=== PATIENT | female | born 1985 | race Caucasian/White ===

== ENCOUNTER 2017-09-01 05:13 | Inpatient (IN) | payer BC ==
[2017-09-01] MEDS ORDERED: ceFAZolin 2 GM in Premix Bag 1 BAG IV ONE (05:26)
[2017-09-01] MEDS ORDERED: Sodium Chloride 0.9% 10 ML Syringe FLUSH PRN (05:26)
[2017-09-01] MEDS ORDERED: Sodium Chloride 0.9% 2.5 ML Syringe FLUSH PRN (05:26)
[2017-09-01] MEDS ORDERED: Lactated Ringers 1,000 ML IV SCH ×2 (05:30→09:15)
[2017-09-01] MEDS ORDERED: Oxytocin/0.9 % Sodium Chloride 30 UNIT/500 ML BAG IV SCH (05:30)
[2017-09-01] MEDS ORDERED: Citric Acid/Sodium Citrate Solution 30 ML Cup PO SCH (05:30)
[2017-09-01] MEDS ORDERED: Morphine PF 1 MG/ML Amp ONE (07:20)
[2017-09-01] MEDS ORDERED: ePHEDrine 50 MG/ML SDV ONE (07:20)
[2017-09-01] MEDS ORDERED: Ondansetron 4 MG/2 ML SDV ONE (07:20)
[2017-09-01] MEDS ORDERED: ceFAZolin/Dextrose,Iso-Osmotic 2 GM/50 ML Duplex Bag IV ONE (07:20)
[2017-09-01] MEDS ORDERED: Octyl 2-Cyanoacrylate 1 Tube ONE (07:34)
[2017-09-01] MEDS ORDERED: Oxytocin/0.9 % Sodium Chloride 30 UNIT/500 ML BAG ONE (07:37)
[2017-09-01] MEDS ORDERED: Scopolamine 1.5 MG Transdermal Patch TRDERM PRN (07:38)
--- NOTE | 2017-09-01 07:53 | PCM.PREANE ---
Preanesthetic Assessment - Anesthesia/Transfusion/Family Hx Anesthesia History: Prior Anesthesia Reaction (hx of perioperative nausea and vomiting with prior c sections) Family History of Anesthesia Reaction: No Transfusion History: No Prior Transfusion(s) - Review of Systems General: No Symptoms Pulmonary: No Symptoms Cardiovascular: No Symptoms Gastrointestinal: No Symptoms Neurological: No Symptoms Other: Reports: None (term ) - Physical Assessment NPO Status Date: 08/31/17 Height: 1.73 m Weight: 102.512 kg ASA Class: 2 Dentition: Reports: Normal Dentition ROM/Head Extension: Full Lungs: Clear to Auscultation, Normal Respiratory Effort Cardiovascular: Regular Rate, Regular Rhythm - Lab Values: Laboratory Last Values WBC 11.46 K/uL (4.0-11.0) H 09/01/17 05:53 RBC 4.01 M/uL (4.30-5.90) L 09/01/17 05:53 Hgb 12.3 g/dL (12.0-16.0) 09/01/17 05:53 Hct 36.3 % (36.0-46.0) 09/01/17 05:53 MCV 90.5 fL (80.0-98.0) 09/01/17 05:53 MCH 30.7 pg (27.0-32.0) 09/01/17 05:53 MCHC 33.9 g/dL (31.0-37.0) 09/01/17 05:53 RDW Std Deviation 50.7 fl (28.0-62.0) 09/01/17 05:53 RDW Coeff of Husam 15 % (11.0-15.0) 09/01/17 05:53 Plt Count 173 K/uL (150-400) 09/01/17 05:53 MPV 10.30 fL (7.40-12.00) 09/01/17 05:53 Nucleated RBC % 0.0 /100WBC 09/01/17 05:53 Nucleated RBCs # 0 K/uL 09/01/17 05:53 Blood Type A POSITIVE 09/01/17 05:53 Antibody Screen NEGATIVE 09/01/17 05:53 - Allergies Allergies/Adverse Reactions: Allergies Allergy/AdvReac Type Severity Reaction Status Date / Time No Known Allergies Allergy Verified 08/29/17 09:00 - Blood Blood Available: Yes - Acknowledgements Anesthesia Type Planned: Spinal Pt an Appropriate Candidate for the Planned Anesthesia: Yes Alternatives and Risks of Anesthesia Discussed w Pt/Guardian: Yes Pt/Guardian Understands and Agrees with Anesthesia Plan: Yes PreAnesthesia Questionnaire HEENT History: Reports: None Cardiovascular History: Reports: None Respiratory History: Reports: None Gastrointestinal History: Reports: None Genitourinary History: Reports: None 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: Musculoskeletal History: Reports: Fracture Other Musculoskeletal History: hx fx ankle Neurological History: Reports: None Psychiatric History: Reports: None Endocrine/Metabolic History: Reports: Obesity/BMI 30+ Hematologic History: Reports: None Immunologic History: Reports: None Oncologic (Cancer) History: Reports: None Dermatologic History: Reports: None - Past Surgical History Head Surgeries/Procedures: Reports: None Female Surgical History: Reports: Section - SUBSTANCE USE Smoking Status *Q: Never Smoker Tobacco Use Within Last Twelve Months: No Second Hand Smoke Exposure: No Recreational Drug Use History: No - HOME MEDS Home Medications: Home Meds Vit W-Ca,Fe,FA(<1 mg) [ Vitamins] 1 tab PO DAILY 09/29/15 [ History] - CURRENT (IN HOUSE) MEDS Current Meds: Current Medications Citric Acid/Sodium Citrate (Bicitra Solution) 30 ml PO .ONCE ASIM Lactated Ringer's (Ringers, Lactated) 1,000 mls @ 500 mls/hr IV .BOLUS ASIM Last Admin: 09/01/17 06:06 Dose: 500 mls/hr Oxytocin/Sodium Chloride (Oxytocin 30 Unit/500 Ml-Ns) 30 unit in 500 mls @ 250 mls/hr IV TITRATE ASIM Scopolamine (Transderm-Scop) 1.5 mg TRDERM Q72H PRN PRN Reason: Nausea/Vomiting Sodium Chloride (Saline Flush) 10 ml FLUSH ASDIRECTED PRN PRN Reason: Keep Vein Open Sodium Chloride (Saline Flush) 2.5 ml FLUSH ASDIRECTED PRN PRN Reason: Keep Vein Open Discontinued Medications Cefazolin Sodium/Dextrose (Ancef) Confirm Administered Dose 2 gm IV .STK-MED ONE Stop: 09/01/17 07:21 Ephedrine Sulfate (Ephedrine Sulfate) Confirm Administered Dose 50 mg .ROUTE .STK-MED ONE Stop: 09/01/17 07:21 Cefazolin Sodium/Dextrose 2 gm (/ Premix) 50 mls @ 100 mls/hr IV ONETIME ONE Stop: 09/01/17 05:55 Oxytocin/Sodium Chloride (Oxytocin 30 Unit/500 Ml-Ns) Confirm Administered Dose 30 unit in 500 mls @ as directed .ROUTE .STK-MED ONE Stop: 09/01/17 07:38 Morphine Sulfate (Duramorph Pf) Confirm Administered Dose 1 mg .ROUTE .STK-MED ONE Stop: 09/01/17 07:21 Octyl Cyanoacrylate (Dermabond Advance) Confirm Administered Dose 1 applic .ROUTE .STK-MED ONE Stop: 09/01/17 07:35 Ondansetron HCl (Zofran) Confirm Administered Dose 4 mg .ROUTE .STK-MED ONE Stop: 09/01/17 07:21
[2017-09-01] MEDS ORDERED: Phenylephrine/Normal Saline 100 MCG/ML 10 ML Syringe ONE (08:09)
[2017-09-01] MEDS ORDERED: fentaNYL 100 MCG/2 ML SDV IVPUSH PRN (08:30)
[2017-09-01] MEDS ORDERED: Nalbuphine 10 MG/1 ML Vial IVPUSH PRN (08:30)
[2017-09-01] MEDS ORDERED: diphenhydrAMINE 50 MG/ML SDV IVPUSH PRN ×2 (08:30→09:15)
[2017-09-01] MEDS ORDERED: Aluminum Hydroxide/Magnesium Hydroxide/Simethicone Susp 30 ML Cup PO PRN (09:15)
[2017-09-01] MEDS ORDERED: Bisacodyl 10 MG Supp RECTAL PRN (09:15)
[2017-09-01] MEDS ORDERED: Acetaminophen/oxyCODONE 325-5 MG Tab PO PRN (09:15)
[2017-09-01] MEDS ORDERED: Ondansetron 4 MG/2 ML SDV IV PRN (09:15)
[2017-09-01] MEDS ORDERED: Simethicone 80 MG Tab.Chew PO PRN (09:15)
[2017-09-01] MEDS ORDERED: Lanolin 100% Cream 7 GM Tube TOP PRN (09:15)
--- NOTE | 2017-09-01 09:25 | PCM.OPNOTE ---
- General Post-Op/Procedure Note Date of Surgery/Procedure: 09/01/17 Operative Procedure(s): Repeat LTCS with bilateral salpingectomy Findings: term female AGPARs 9, 9 weight 3720 gm. Intact placenta with 3V cord. Normal appearing tubes/ovaries Pre Op Diagnosis: 39 week IUP. Previous c section x 2, desires repeat. Undesired fertility Post-Op Diagnosis: same Anesthesia Technique: Spinal Primary Surgeon: Breann Hartman Lawn Mower Operator: Demetria Kapoor Pathology: fallopian tubes Fluid Replacement, Intraop: 2,000 EBL in mLs: 800 Complications: none known Condition: Good Free Text/Narrative:: Dictation [id number]
[2017-09-01] MEDS ORDERED: Promethazine 25 MG/ML SDV IM PRN (09:31)
--- NOTE | 2017-09-01 09:42 | PCM.POSTAN ---
POST ANESTHESIA ASSESSMENT - MENTAL STATUS Mental Status: Alert, Oriented - RESPIRATORY Respiratory Status: Respiratory Rate WNL, Airway Patent, O2 Saturation Stable - CARDIOVASCULAR CV Status: Pulse Rate WNL, Blood Pressure Stable - GASTROINTESTINAL GI Status: No Symptoms - PAIN Pain Score: 0 - POST OP HYDRATION Hydration Status: Adequate & Stable
[2017-09-01] MEDS: Ketorolac 30 MG/ML SDV IVPUSH SCH ×3 (09:43→21:38)
--- NOTE | 2017-09-01 13:12 | OR ---
SURGEON: Breann Hartman M.D. DATE OF PROCEDURE: 09/01/2017 PREOPERATIVE DIAGNOSES: 1. Thirty-nine week intrauterine . 2. Previous section, desires repeat. 3. Undesired fertility. POSTOPERATIVE DIAGNOSES: 1. Thirty-nine week intrauterine . 2. Previous section, desires repeat. 3. Undesired fertility. PROCEDURE: Repeat low-transverse section with bilateral salpingectomy. PUNCH FINISHER: Soto Kapoor MS-4. ANESTHESIA: Spinal. ESTIMATED BLOOD LOSS: 800 mL. FLUIDS: 2000 mL crystalloid. COMPLICATION: None known. FINDINGS: Term female. scores 9 at 1 minute, 9 at 5 minutes. Weight of 3720 g. Intact placenta, 3-vessel cord. Normal-appearing tubes and ovaries. DISPOSITION: The patient to PACU, infant to nursery. PROCEDURE IN DETAIL: Josie is a 31-year-old, G3, P2 at 39 weeks' gestational age, who presents today for scheduled repeat delivery. She also no longer desires fertility. We have requested for permission to do permanent control at the time of the and has been approved by the ethics committee at [facility]. Risks of the procedure have been reviewed. Proper consent obtained. The patient taken to the operating room, where she underwent spinal anesthetic. She was placed in dorsal supine position with leftward tilt. SCDs lower extremities. Cardenas to gravity. She was prepped and draped in usual sterile fashion. Received Ancef prophylactically. Time-out was performed. After being prepped and draped in usual sterile fashion, anesthesia was tested and found to be adequate. Previous Pfannenstiel scar was now excised. Subcutaneous tissue was incised down the level of the rectus fascia, which was incised in midline and lateralized on either side sharply and bluntly. The superior aspect of fascia was tented upward, dissected sharply and bluntly from underlying muscle. In a similar fashion, this was performed with the inferior aspect of the fascia. Rectus muscles were in the midline, dissected sharply and bluntly. The peritoneum was tented upward and entered sharply. Rectus muscles and peritoneum were now lateralized bluntly. Uterine position and position palpated. Self-retaining retractor gently placed. Uterovesical reflection was visualized. There was scarring noted along this region, as to be expected. The bladder flap was created sharply and bluntly. Bladder was mobilized away from lower uterine segment. Low-transverse hysterotomy was now performed. Uterine cavity entered bluntly with the scalpel. Hysterotomy was lateralized bluntly. Amniotomy was performed. Clear fluid was returned. The infant's head was flexed and fundal pressure was applied. The 's head was delivered followed by anterior shoulder, posterior shoulder, and remainder of body without difficulty. The 's oropharynx and nares bulb suctioned. Cord was clamped x2 and cut. was handed off to attending nursing staff. Cord arterial, cord venous, cord blood sampling was obtained. The placenta was now delivered. Uterine cavity was cleared of all clot and debris. Hysterotomy was repaired using 0 Vicryl in continuous running locked fashion. The left uterine vessel continues to bleed; therefore, 2 [id number] sutures were placed while lateralizing the remainder of the vessels and ureter were performed, hemostasis thereafter evident. The hysterotomy once again re-imbricated, hemostasis appears evident. The posterior aspect of the uterus inspected, no defects or hematomas found be forming. The fallopian tubes are identified bilaterally. Confirmed with the patient she still would like to proceed with permanent control, she agrees. The left fallopian tube was isolated and, using Harmonic Cipriano, salpingectomy was performed. Specimen to pathology. Similar procedure performed on the patient's right side. The operative sites for salpingectomy were now inspected, and any areas of oozing were cauterized. Region was well irrigated and suction dried. Uterus returned to the abdominal cavity. Hysterotomy once again inspected. Any areas of oozing were cauterized. Colonic gutters were now cleared of all clot and debris, well irrigated, and suction dried. Hemostasis remained evident. Self-retaining retractor now gently removed. The salpingectomy sites once again inspected and found to be hemostatic. Hysterotomy once again inspected and found to be hemostatic. Rectus muscles were now reapproximated using 0 Vicryl in inverted mattress suture technique. Anterior aspect of the muscle, posterior aspect of the fascia closely inspected. Any areas of oozing were cauterized. The fascial edges were reapproximated using 0 Vicryl in continuous running fashion beginning laterally on either side meeting in the midline. Subcu tissue was well irrigated and suction dried. Any areas of oozing were cauterized. Subcutaneous tissue was now reapproximated using 3-0 plain gut in continuous running fashion. The skin edges were reapproximated using 3-0 Vicryl on a Benito needle in subcuticular fashion. Dermabond was gently placed. Uterus remained firm. Sponge, instrument, and needle count correct x2. The patient tolerated the procedure well. She will go to PACU in stable condition. Specimens to pathology. Infant to nursery. ZOFIA / DL /[id number]
[2017-09-01] MEDS: Docusate Sodium 100 MG Cap PO SCH (20:51)
[2017-09-02] MEDS: Ketorolac 30 MG/ML SDV IVPUSH SCH ×2 (03:48→10:18)
--- NOTE | 2017-09-02 07:51 | PCM48HPAN ---
Post Anesthesia Note - EVALUATION WITHIN 48HRS OF ANESTHETIC Vital Signs in Normal Range: Yes Patient Participated in Evaluation: Yes Respiratory Function Stable: Yes Airway Patent: Yes Cardiovascular Function Stable: Yes Hydration Status Stable: Yes Pain Control Satisfactory: Yes Nausea and Vomiting Control Satisfactory: Yes Mental Status Recovered: Yes Resp Rate: 17
--- NOTE | 2017-09-02 07:56 | PCM.PNPP ---
<Analisa Harry - Last Filed: 09/02/17 07:53> - General Info Date of Service: 09/02/17 Functional Status: Reports: Pain Controlled, Tolerating Diet, Ambulating, Urinating - Review of Systems General: Denies: Fever, Weakness, Fatigue Pulmonary: Denies: Shortness of Breath, Pleuritic Chest Pain, Cough Cardiovascular: Denies: Chest Pain, Palpitations, Dyspnea on Exertion Gastrointestinal: Denies: Abdominal Pain Genitourinary: Denies: Dysuria Psychiatric: Reports: No Symptoms - General Info Date of Service: 09/02/17 - Patient Data Vital Signs - Most Recent: Last Vital Signs Temp 36.6 C 09/02/17 05:00 Pulse 88 09/02/17 07:00 Resp 17 09/02/17 07:51 BP 110/59 L 09/02/17 05:00 Pulse Ox 98 09/02/17 07:00 Weight - Most Recent: 102.512 kg I&O - Last 24 Hours: Intake & Output 09/01/17 09/02/17 09/02/17 22:59 06:59 14:59 Intake Total 1600 Output Total 900 2500 Balance -900 -900 Lab Results - Last 24 Hours: Laboratory Results - last 24 hr 09/01/17 09/02/17 Range/Units 08:27 05:10 Hgb 8.8 L (12.0-16.0) g/dL Hct 25.7 L (36.0-46.0) % Cord ABG pH 7.374 (7.18-7.38) Cord ABG Base Excess -1 H (-10--2) Cord VBG pH 7.368 (7.25-7.45) Cord VBG Base Excess -1 H (-10--2) Med Orders - Current: Current Medications Al Hydroxide/Mg Hydroxide (Mag-Al Plus) 30 ml PO Q8H PRN PRN Reason: Heartburn Bisacodyl (Dulcolax) 10 mg RECTAL .ONCE PRN PRN Reason: Constipation Citric Acid/Sodium Citrate (Bicitra Solution) 30 ml PO .ONCE ASIM Last Admin: 09/01/17 07:57 Dose: 30 ml Diphenhydramine HCl (Benadryl) 25 mg IVPUSH Q4H PRN PRN Reason: Itching Stop: 09/02/17 08:31 Diphenhydramine HCl (Benadryl) 25 mg IVPUSH Q6H PRN PRN Reason: Itching or Nausea Docusate Sodium (Colace) 100 mg PO BID [facility] Last Admin: 09/01/17 20:51 Dose: 100 mg Emollient Ointment (Lansinoh Hpa) 0 gm TOP ASDIRECTED PRN PRN Reason: Sore Nipples Fentanyl (Sublimaze) 50 mcg IVPUSH Q5M PRN PRN Reason: Pain (severe 7-10) Stop: 09/02/17 08:31 Lactated Ringer's (Ringers, Lactated) 1,000 mls @ 500 mls/hr IV .BOLUS [facility] Last Admin: 09/01/17 06:06 Dose: 500 mls/hr Oxytocin/Sodium Chloride (Oxytocin 30 Unit/500 Ml-Ns) 30 unit in 500 mls @ 250 mls/hr IV TITRATE [facility] Lactated Ringer's (Ringers, Lactated) 1,000 mls @ 125 mls/hr IV ASDIRECTED [facility] Last Admin: 09/01/17 12:01 Dose: 125 mls/hr Ibuprofen (Motrin) 800 mg PO Q8H PRN PRN Reason: mild pain or fever Ketorolac Tromethamine (Toradol) 30 mg IVPUSH Q6H [facility] Stop: 09/02/17 09:16 Last Admin: 09/02/17 03:48 Dose: 30 mg Nalbuphine HCl (Nubain) 2.5 mg IVPUSH Q3H PRN PRN Reason: Pruritis Stop: 09/02/17 08:31 Ondansetron HCl (Zofran) 4 mg IV Q4H PRN PRN Reason: Nausea/Vomiting Last Admin: 09/01/17 12:14 Dose: 4 mg Oxycodone/Acetaminophen (Percocet 325-5 Mg) 1 tab PO Q4H PRN PRN Reason: Pain (moderate 4-6) Oxycodone/Acetaminophen (Percocet 325-5 Mg) 2 tab PO Q4H PRN PRN Reason: Pain (moderate 4-6) Promethazine HCl (Phenergan) 12.5 mg IM ONETIME PRN PRN Reason: Nausea Last Admin: 09/01/17 16:52 Dose: 12.5 mg Scopolamine (Transderm-Scop) 1.5 mg TRDERM Q72H PRN PRN Reason: Nausea/Vomiting Last Admin: 09/01/17 07:57 Dose: 1.5 mg Simethicone (Simethicone) 80 mg PO Q4H PRN PRN Reason: Gas Sodium Chloride (Saline Flush) 10 ml FLUSH ASDIRECTED PRN PRN Reason: Keep Vein Open Sodium Chloride (Saline Flush) 2.5 ml FLUSH ASDIRECTED PRN PRN Reason: Keep Vein Open Discontinued Medications Cefazolin Sodium/Dextrose (Ancef) Confirm Administered Dose 2 gm IV .STK-MED ONE Stop: 09/01/17 07:21 Ephedrine Sulfate (Ephedrine Sulfate) Confirm Administered Dose 50 mg .ROUTE .STK-MED ONE Stop: 09/01/17 07:21 Cefazolin Sodium/Dextrose 2 gm (/ Premix) 50 mls @ 100 mls/hr IV ONETIME ONE Stop: 09/01/17 05:55 Oxytocin/Sodium Chloride (Oxytocin 30 Unit/500 Ml-Ns) Confirm Administered Dose 30 unit in 500 mls @ as directed .ROUTE .STK-MED ONE Stop: 09/01/17 07:38 Morphine Sulfate (Duramorph Pf) Confirm Administered Dose 1 mg .ROUTE .STK-MED ONE Stop: 09/01/17 07:21 Octyl Cyanoacrylate (Dermabond Advance) Confirm Administered Dose 1 applic .ROUTE .STK-MED ONE Stop: 09/01/17 07:35 Ondansetron HCl (Zofran) Confirm Administered Dose 4 mg .ROUTE .STK-MED ONE Stop: 09/01/17 07:21 Phenylephrine HCl (Phenylephrine In Ns 100 Mcg/Ml) Confirm Administered Dose 1 mg .ROUTE .STK-MED ONE Stop: 09/01/17 08:10 - Interaction Infant Disposition, : [place] in Room with Family Infant Interaction: Holding Infant Infant Feeding: Attempted ; Nursed Fair/Poor Support Person: - Recovery Exam Fundal Tone: Firm Fundal Level: At Umbilicus Fundal Placement: Midline Lochia Amount: Scant Lochia Color: Rubra/Red Perineum Description: Intact, Minimal Bruising/Swelling Bladder Status: Indwelling Catheter in Place Urinary Elimination: Indwelling Catheter - Exam General: Alert, Oriented Neck: Supple Lungs: Clear to Auscultation, Normal Respiratory Effort Cardiovascular: Regular Rate, Regular Rhythm GI/Abdominal Exam: Normal Bowel Sounds, No Organomegaly, No Distention Extremities: Normal Inspection, Non-Tender, Normal Capillary Refill, Pedal Edema (trace) Skin: Warm, Dry, Intact Psy/Mental Status: Alert - Problem List & Annotations (1) delivery delivered SNOMED Code(s): 566524833 Code(s): O82 - ENCOUNTER FOR DELIVERY WITHOUT INDICATION Status: Acute - Problem List Review Problem List Initiated/Reviewed/Updated: Yes - Assessment Assessment:: POD#1 s/p RLTCS. Minimal pain and lochia. Work on breast feeding today. Anticipate discharge home tomorrow. - Plan Plan:: Continue routine post-op cares. <Breann Hartman - Last Filed: 09/02/17 08:12> - Patient Data Vital Signs - Most Recent: Last Vital Signs Temp 36.6 C 09/02/17 05:00 Pulse 88 09/02/17 07:00 Resp 17 09/02/17 07:51 BP 110/59 L 09/02/17 05:00 Pulse Ox 98 09/02/17 07:00 I&O - Last 24 Hours: Intake & Output 09/01/17 09/02/17 09/02/17 22:59 06:59 14:59 Intake Total 1600 Output Total 900 2500 Balance -900 -900 Lab Results - Last 24 Hours: Laboratory Results - last 24 hr 09/01/17 09/02/17 Range/Units 08:27 05:10 Hgb 8.8 L (12.0-16.0) g/dL Hct 25.7 L (36.0-46.0) % Cord ABG pH 7.374 (7.18-7.38) Cord ABG Base Excess -1 H (-10--2) Cord VBG pH 7.368 (7.25-7.45) Cord VBG Base Excess -1 H (-10--2) Med Orders - Current: Current Medications Al Hydroxide/Mg Hydroxide (Mag-Al Plus) 30 ml PO Q8H PRN PRN Reason: Heartburn Bisacodyl (Dulcolax) 10 mg RECTAL .ONCE PRN PRN Reason: Constipation Citric Acid/Sodium Citrate (Bicitra Solution) 30 ml PO .ONCE ASIM Last Admin: 09/01/17 07:57 Dose: 30 ml Diphenhydramine HCl (Benadryl) 25 mg IVPUSH Q4H PRN PRN Reason: Itching Stop: 09/02/17 08:31 Diphenhydramine HCl (Benadryl) 25 mg IVPUSH Q6H PRN PRN Reason: Itching or Nausea Docusate Sodium (Colace) 100 mg PO BID [facility] Last Admin: 09/01/17 20:51 Dose: 100 mg Emollient Ointment (Lansinoh Hpa) 0 gm TOP ASDIRECTED PRN PRN Reason: Sore Nipples Fentanyl (Sublimaze) 50 mcg IVPUSH Q5M PRN PRN Reason: Pain (severe 7-10) Stop: 09/02/17 08:31 Lactated Ringer's (Ringers, Lactated) 1,000 mls @ 500 mls/hr IV .BOLUS [facility] Last Admin: 09/01/17 06:06 Dose: 500 mls/hr Oxytocin/Sodium Chloride (Oxytocin 30 Unit/500 Ml-Ns) 30 unit in 500 mls @ 250 mls/hr IV TITRATE [facility] Lactated Ringer's (Ringers, Lactated) 1,000 mls @ 125 mls/hr IV ASDIRECTED [facility] Last Admin: 09/01/17 12:01 Dose: 125 mls/hr Ibuprofen (Motrin) 800 mg PO Q8H PRN PRN Reason: mild pain or fever Ketorolac Tromethamine (Toradol) 30 mg IVPUSH Q6H [facility] Stop: 09/02/17 09:16 Last Admin: 09/02/17 03:48 Dose: 30 mg Nalbuphine HCl (Nubain) 2.5 mg IVPUSH Q3H PRN PRN Reason: Pruritis Stop: 09/02/17 08:31 Ondansetron HCl (Zofran) 4 mg IV Q4H PRN PRN Reason: Nausea/Vomiting Last Admin: 09/01/17 12:14 Dose: 4 mg Oxycodone/Acetaminophen (Percocet 325-5 Mg) 1 tab PO Q4H PRN PRN Reason: Pain (moderate 4-6) Oxycodone/Acetaminophen (Percocet 325-5 Mg) 2 tab PO Q4H PRN PRN Reason: Pain (moderate 4-6) Promethazine HCl (Phenergan) 12.5 mg IM ONETIME PRN PRN Reason: Nausea Last Admin: 09/01/17 16:52 Dose: 12.5 mg Scopolamine (Transderm-Scop) 1.5 mg TRDERM Q72H PRN PRN Reason: Nausea/Vomiting Last Admin: 09/01/17 07:57 Dose: 1.5 mg Simethicone (Simethicone) 80 mg PO Q4H PRN PRN Reason: Gas Sodium Chloride (Saline Flush) 10 ml FLUSH ASDIRECTED PRN PRN Reason: Keep Vein Open Sodium Chloride (Saline Flush) 2.5 ml FLUSH ASDIRECTED PRN PRN Reason: Keep Vein Open Discontinued Medications Cefazolin Sodium/Dextrose (Ancef) Confirm Administered Dose 2 gm IV .STK-MED ONE Stop: 09/01/17 07:21 Ephedrine Sulfate (Ephedrine Sulfate) Confirm Administered Dose 50 mg .ROUTE .STK-MED ONE Stop: 09/01/17 07:21 Cefazolin Sodium/Dextrose 2 gm (/ Premix) 50 mls @ 100 mls/hr IV ONETIME ONE Stop: 09/01/17 05:55 Oxytocin/Sodium Chloride (Oxytocin 30 Unit/500 Ml-Ns) Confirm Administered Dose 30 unit in 500 mls @ as directed .ROUTE .STK-MED ONE Stop: 09/01/17 07:38 Morphine Sulfate (Duramorph Pf) Confirm Administered Dose 1 mg .ROUTE .STK-MED ONE Stop: 09/01/17 07:21 Octyl Cyanoacrylate (Dermabond Advance) Confirm Administered Dose 1 applic .ROUTE .STK-MED ONE Stop: 09/01/17 07:35 Ondansetron HCl (Zofran) Confirm Administered Dose 4 mg .ROUTE .STK-MED ONE Stop: 09/01/17 07:21 Phenylephrine HCl (Phenylephrine In Ns 100 Mcg/Ml) Confirm Administered Dose 1 mg .ROUTE .STK-MED ONE Stop: 09/01/17 08:10 - My Orders Last 24 Hours: My Active Orders 09/01/17 09:15 Patient Status [ADT] Routine Ambulate [RC] PER UNIT ROUTINE Communication Order [RC] PER UNIT ROUTINE May Shower [RC] ASDIRECTED Notify Provider Intake and Out [RC] ASDIRECTED RT Incentive Spirometry [RC] Q2HWA Vital Signs [RC] PER UNIT ROUTINE Acetaminophen/oxyCODONE [Percocet 325-5 MG] 1 tab PO Q4H PRN Acetaminophen/oxyCODONE [Percocet 325-5 MG] 2 tab PO Q4H PRN Alum Hydrox/Mag Hydrox/Simeth [Mag-Al Plus] 30 ml PO Q8H PRN Bisacodyl [Dulcolax] 10 mg RECTAL .ONCE PRN Ibuprofen [Motrin] 800 mg PO Q8H PRN Ketorolac [Toradol] 30 mg IVPUSH Q6H Lactated Ringers [Ringers, Lactated] 1,000 ml IV ASDIRECTED Lanolin [Lansinoh HPA] See Dose Instructions TOP ASDIRECTED PRN Ondansetron [Zofran] 4 mg IV Q4H PRN Simethicone 80 mg PO Q4H PRN diphenhydrAMINE [Benadryl] 25 mg IVPUSH Q6H PRN Abdominal Binder [OM.PC] Routine Assess Lochia [WOMSER] Per Unit Routine Assess Uterine Involution [WOMSER] Per Unit Routine Breast Pump [WOMSER] Per Unit Routine Heat Therapy [OM.PC] Routine Ice Therapy [OM.PC] Routine Peripheral IV Discontinue [OM.PC] Routine Sequential Compression Device [OM.PC] Per Unit Routine 09/01/17 21:00 Docusate Sodium [Colace] 100 mg PO BID 09/01/17 Lunch Regular Diet [DIET] - Plan Plan:: patient seen and examined, agree with above
[2017-09-02] MEDS: Docusate Sodium 100 MG Cap PO SCH ×2 (10:18→20:22)
[2017-09-02] MEDS: Ibuprofen 800 MG Tab PO PRN ×2 (15:43→23:28)
[2017-09-02] MEDS: Acetaminophen/oxyCODONE 325-5 MG Tab PO PRN (20:23)
[2017-09-03] MEDS: Acetaminophen/oxyCODONE 325-5 MG Tab PO PRN ×2 (01:00→07:30)
--- NOTE | 2017-09-03 07:16 | PCM.PNPP ---
<Aleyda Kapoor - Last Filed: 09/03/17 07:10> - General Info Date of Service: 09/03/17 Admission Dx/Problem (Free Text): Status post with bilateral salpingectomy (approved). Subjective Update: Patient is doing well this morning. Pain is well controlled. Tolerating diet with no n/v. Urinating. Has had a bowel movement, positive for flatus. Ambulating and using SCD's. No ICS in the room. Anticipate discharge today. Functional Status: Reports: Pain Controlled, Tolerating Diet, Ambulating, Urinating - Review of Systems General: Denies: Fever, Chills Pulmonary: Denies: Shortness of Breath, Pleuritic Chest Pain Cardiovascular: Reports: Edema. Denies: Chest Pain Gastrointestinal: Denies: Abdominal Pain Genitourinary: Denies: Dysuria Psychiatric: Reports: No Symptoms - Patient Data Vital Signs - Most Recent: Last Vital Signs Temp 36.5 C 09/02/17 19:30 Pulse 94 09/02/17 19:30 Resp 16 09/02/17 19:30 BP 113/62 09/02/17 19:30 Pulse Ox 97 09/02/17 19:30 Weight - Most Recent: 226 lb Med Orders - Current: Current Medications Al Hydroxide/Mg Hydroxide (Mag-Al Plus) 30 ml PO Q8H PRN PRN Reason: Heartburn Bisacodyl (Dulcolax) 10 mg RECTAL .ONCE PRN PRN Reason: Constipation Citric Acid/Sodium Citrate (Bicitra Solution) 30 ml PO .ONCE ASIM Last Admin: 09/01/17 07:57 Dose: 30 ml Diphenhydramine HCl (Benadryl) 25 mg IVPUSH Q6H PRN PRN Reason: Itching or Nausea Docusate Sodium (Colace) 100 mg PO BID [facility] Last Admin: 09/02/17 20:22 Dose: 100 mg Emollient Ointment (Lansinoh Hpa) 0 gm TOP ASDIRECTED PRN PRN Reason: Sore Nipples Lactated Ringer's (Ringers, Lactated) 1,000 mls @ 500 mls/hr IV .BOLUS [facility] Last Admin: 09/01/17 06:06 Dose: 500 mls/hr Oxytocin/Sodium Chloride (Oxytocin 30 Unit/500 Ml-Ns) 30 unit in 500 mls @ 250 mls/hr IV TITRATE ASIM Lactated Ringer's (Ringers, Lactated) 1,000 mls @ 125 mls/hr IV ASDIRECTED ASIM Last Admin: 09/01/17 12:01 Dose: 125 mls/hr Ibuprofen (Motrin) 800 mg PO Q8H PRN PRN Reason: mild pain or fever Last Admin: 09/02/17 23:28 Dose: 800 mg Ondansetron HCl (Zofran) 4 mg IV Q4H PRN PRN Reason: Nausea/Vomiting Last Admin: 09/01/17 12:14 Dose: 4 mg Oxycodone/Acetaminophen (Percocet 325-5 Mg) 1 tab PO Q4H PRN PRN Reason: Pain (moderate 4-6) Last Admin: 09/02/17 15:47 Dose: 1 tab Oxycodone/Acetaminophen (Percocet 325-5 Mg) 2 tab PO Q4H PRN PRN Reason: Pain (moderate 4-6) Last Admin: 09/03/17 01:00 Dose: 2 tab Promethazine HCl (Phenergan) 12.5 mg IM ONETIME PRN PRN Reason: Nausea Last Admin: 09/01/17 16:52 Dose: 12.5 mg Scopolamine (Transderm-Scop) 1.5 mg TRDERM Q72H PRN PRN Reason: Nausea/Vomiting Last Admin: 09/01/17 07:57 Dose: 1.5 mg Simethicone (Simethicone) 80 mg PO Q4H PRN PRN Reason: Gas Sodium Chloride (Saline Flush) 10 ml FLUSH ASDIRECTED PRN PRN Reason: Keep Vein Open Sodium Chloride (Saline Flush) 2.5 ml FLUSH ASDIRECTED PRN PRN Reason: Keep Vein Open Discontinued Medications Cefazolin Sodium/Dextrose (Ancef) Confirm Administered Dose 2 gm IV .STK-MED ONE Stop: 09/01/17 07:21 Diphenhydramine HCl (Benadryl) 25 mg IVPUSH Q4H PRN PRN Reason: Itching Stop: 09/02/17 08:31 Ephedrine Sulfate (Ephedrine Sulfate) Confirm Administered Dose 50 mg .ROUTE .STK-MED ONE Stop: 09/01/17 07:21 Fentanyl (Sublimaze) 50 mcg IVPUSH Q5M PRN PRN Reason: Pain (severe 7-10) Stop: 09/02/17 08:31 Cefazolin Sodium/Dextrose 2 gm (/ Premix) 50 mls @ 100 mls/hr IV ONETIME ONE Stop: 09/01/17 05:55 Last Admin: 09/02/17 16:10 Dose: Not Given Oxytocin/Sodium Chloride (Oxytocin 30 Unit/500 Ml-Ns) Confirm Administered Dose 30 unit in 500 mls @ as directed .ROUTE .STK-MED ONE Stop: 09/01/17 07:38 Last Admin: 09/02/17 16:10 Dose: Not Given Ketorolac Tromethamine (Toradol) 30 mg IVPUSH Q6H ASIM Stop: 09/02/17 09:16 Last Admin: 09/02/17 10:18 Dose: 30 mg Morphine Sulfate (Duramorph Pf) Confirm Administered Dose 1 mg .ROUTE .STK-MED ONE Stop: 09/01/17 07:21 Nalbuphine HCl (Nubain) 2.5 mg IVPUSH Q3H PRN PRN Reason: Pruritis Stop: 09/02/17 08:31 Octyl Cyanoacrylate (Dermabond Advance) Confirm Administered Dose 1 applic .ROUTE .STK-MED ONE Stop: 09/01/17 07:35 Ondansetron HCl (Zofran) Confirm Administered Dose 4 mg .ROUTE .STK-MED ONE Stop: 09/01/17 07:21 Phenylephrine HCl (Phenylephrine In Ns 100 Mcg/Ml) Confirm Administered Dose 1 mg .ROUTE .STK-MED ONE Stop: 09/01/17 08:10 - Interaction Disposition, : in Room with Family Infant Interaction: Holding Infant Feeding: Attempted ; Nursed Fair/Poor Other Feeding: Supplementing with formula. Support Person: - Recovery Exam Fundal Tone: Firm Fundal Level: 1 Fingerbreadths Below Umbilicus Fundal Placement: Midline Lochia Amount: Scant Lochia Color: Rubra/Red Perineum Description: Intact, Minimal Bruising/Swelling Episiotomy/Laceration: None Bladder Status: Voiding Urinary Elimination: Not Voiding, Voided - Exam General: Alert, Oriented, No Acute Distress Neck: Supple Lungs: Clear to Auscultation, Normal Respiratory Effort Cardiovascular: Regular Rate, Regular Rhythm GI/Abdominal Exam: Soft, Non-Tender Extremities: Pedal Edema Skin: Warm, Dry, Intact Wound/Incisions: Healing Well, Dressing Dry and Intact, No Drainage Psy/Mental Status: Alert Physical Findings Comment:: Trace pedal edema. - Assessment Assessment:: POD#2 s/p RLTCS and bilateral salpingectomy (approved). Minimal pain and lochia. Working on . Discharge home today. - Plan Plan:: Discharge instructions reviewed with the patient. Pelvic rest for 6 weeks. Continue PNV while . Take OTC ibuprofen/tylenol as needed. Instructed to call if fever > 101 or bleeding through a large pad in an hour. Follow-up appointment with [facility] in 6 weeks. <Tonie Block - Last Filed: 09/03/17 07:32> - Review of Systems Cardiovascular: Denies: Palpitations Genitourinary: Denies: Flank Pain - Patient Data Vital Signs - Most Recent: Last Vital Signs Temp 36.5 C 09/02/17 19:30 Pulse 94 09/02/17 19:30 Resp 16 09/02/17 19:30 BP 113/62 09/02/17 19:30 Pulse Ox 97 09/02/17 19:30 Med Orders - Current: Current Medications Al Hydroxide/Mg Hydroxide (Mag-Al Plus) 30 ml PO Q8H PRN PRN Reason: Heartburn Bisacodyl (Dulcolax) 10 mg RECTAL .ONCE PRN PRN Reason: Constipation Citric Acid/Sodium Citrate (Bicitra Solution) 30 ml PO .ONCE ASIM Last Admin: 09/01/17 07:57 Dose: 30 ml Diphenhydramine HCl (Benadryl) 25 mg IVPUSH Q6H PRN PRN Reason: Itching or Nausea Docusate Sodium (Colace) 100 mg PO BID [facility] Last Admin: 09/02/17 20:22 Dose: 100 mg Emollient Ointment (Lansinoh Hpa) 0 gm TOP ASDIRECTED PRN PRN Reason: Sore Nipples Lactated Ringer's (Ringers, Lactated) 1,000 mls @ 500 mls/hr IV .BOLUS [facility] Last Admin: 09/01/17 06:06 Dose: 500 mls/hr Oxytocin/Sodium Chloride (Oxytocin 30 Unit/500 Ml-Ns) 30 unit in 500 mls @ 250 mls/hr IV TITRATE ASIM Lactated Ringer's (Ringers, Lactated) 1,000 mls @ 125 mls/hr IV ASDIRECTED ASIM Last Admin: 09/01/17 12:01 Dose: 125 mls/hr Ibuprofen (Motrin) 800 mg PO Q8H PRN PRN Reason: mild pain or fever Last Admin: 09/02/17 23:28 Dose: 800 mg Ondansetron HCl (Zofran) 4 mg IV Q4H PRN PRN Reason: Nausea/Vomiting Last Admin: 09/01/17 12:14 Dose: 4 mg Oxycodone/Acetaminophen (Percocet 325-5 Mg) 1 tab PO Q4H PRN PRN Reason: Pain (moderate 4-6) Last Admin: 09/02/17 15:47 Dose: 1 tab Oxycodone/Acetaminophen (Percocet 325-5 Mg) 2 tab PO Q4H PRN PRN Reason: Pain (moderate 4-6) Last Admin: 09/03/17 01:00 Dose: 2 tab Promethazine HCl (Phenergan) 12.5 mg IM ONETIME PRN PRN Reason: Nausea Last Admin: 09/01/17 16:52 Dose: 12.5 mg Scopolamine (Transderm-Scop) 1.5 mg TRDERM Q72H PRN PRN Reason: Nausea/Vomiting Last Admin: 09/01/17 07:57 Dose: 1.5 mg Simethicone (Simethicone) 80 mg PO Q4H PRN PRN Reason: Gas Sodium Chloride (Saline Flush) 10 ml FLUSH ASDIRECTED PRN PRN Reason: Keep Vein Open Sodium Chloride (Saline Flush) 2.5 ml FLUSH ASDIRECTED PRN PRN Reason: Keep Vein Open Discontinued Medications Cefazolin Sodium/Dextrose (Ancef) Confirm Administered Dose 2 gm IV .STK-MED ONE Stop: 09/01/17 07:21 Diphenhydramine HCl (Benadryl) 25 mg IVPUSH Q4H PRN PRN Reason: Itching Stop: 09/02/17 08:31 Ephedrine Sulfate (Ephedrine Sulfate) Confirm Administered Dose 50 mg .ROUTE .STK-MED ONE Stop: 09/01/17 07:21 Fentanyl (Sublimaze) 50 mcg IVPUSH Q5M PRN PRN Reason: Pain (severe 7-10) Stop: 09/02/17 08:31 Cefazolin Sodium/Dextrose 2 gm (/ Premix) 50 mls @ 100 mls/hr IV ONETIME ONE Stop: 09/01/17 05:55 Last Admin: 09/02/17 16:10 Dose: Not Given Oxytocin/Sodium Chloride (Oxytocin 30 Unit/500 Ml-Ns) Confirm Administered Dose 30 unit in 500 mls @ as directed .ROUTE .STK-MED ONE Stop: 09/01/17 07:38 Last Admin: 09/02/17 16:10 Dose: Not Given Ketorolac Tromethamine (Toradol) 30 mg IVPUSH Q6H ASIM Stop: 09/02/17 09:16 Last Admin: 09/02/17 10:18 Dose: 30 mg Morphine Sulfate (Duramorph Pf) Confirm Administered Dose 1 mg .ROUTE .STK-MED ONE Stop: 09/01/17 07:21 Nalbuphine HCl (Nubain) 2.5 mg IVPUSH Q3H PRN PRN Reason: Pruritis Stop: 09/02/17 08:31 Octyl Cyanoacrylate (Dermabond Advance) Confirm Administered Dose 1 applic .ROUTE .STK-MED ONE Stop: 09/01/17 07:35 Ondansetron HCl (Zofran) Confirm Administered Dose 4 mg .ROUTE .STK-MED ONE Stop: 09/01/17 07:21 Phenylephrine HCl (Phenylephrine In Ns 100 Mcg/Ml) Confirm Administered Dose 1 mg .ROUTE .STK-MED ONE Stop: 09/01/17 08:10 - Exam Wound/Incisions: No: Dressing Dry and Intact - Problem List & Annotations (1) delivery delivered SNOMED Code(s): 101756930 Code(s): O82 - ENCOUNTER FOR DELIVERY WITHOUT INDICATION Status: Acute Current Visit: No - Problem List Review Problem List Initiated/Reviewed/Updated: Yes - Assessment Assessment:: Patient evaluated independently, agree with above - Plan Plan:: Discharge instructions reviewed. mood changes also discussed Follow up in 2 and 6 weeks
[2017-09-03 07:41] VITALS: BP 115/60
== END 2017-09-03 10:45 | disposition home or self-care (01) | DRG 540 ==
LOC: MW.OB 05:13
PROVIDERS: ADMIT Obstetrics & Gynecology; ATTEND Obstetrics & Gynecology
PROC: 10D00Z1 Extraction of Products of Conception, Low, Open Approach (ICD-10-PCS; principal; 2017-09-01)
PROC: 0UT70ZZ Resection of Bilateral Fallopian Tubes, Open Approach (ICD-10-PCS; 2017-09-01)
DX: O34.211 Maternal care for low transverse scar from previous cesarean delivery (principal); Z3A.39 39 weeks gestation of pregnancy; Z37.0 Single live birth
CPT/HCPCS: 01961; 36415; 59025; 82803; 85014; 85018; 85027; 86850; 86900; 86901; 88302; A9270-GY; J0690; J1885; J2274; J2405; J2550; J2590; J7120

== ENCOUNTER 2023-01-25 00:44 | Emergency (ER) | payer SELFPAY ==
[2023-01-25] MEDS ORDERED: Ondansetron 4 MG/2 ML SDV IVPUSH ONE (00:50)
[2023-01-25] MEDS ORDERED: Sodium Chloride 0.9% 1,000 ML IV STA (01:09)
[2023-01-25 01:10] LABS: BASOPHILS PERCENT AUTO 0.1 % (0.0-1.5); HEMATOCRIT 42.9 % (36.0-46.0); LYMPHOCYTES ABSOLUTE AUTO 1.5 K/uL (0.6-2.4); LYMPHOCYTES PERCENT AUTO 19.2 % (16.0-40.0); MEAN CORPUSCULAR HEMOGLOBIN 30.1 pg (27.0-32.0); MONOCYTES ABSOLUTE AUTO 0.7 K/uL (0.0-0.8); NEUTROPHILS ABSOLUTE AUTO 5.6 K/uL (1.4-5.7); NEUTROPHILS PERCENT AUTO 71.7 % (48.0-80.0); NRBC ABSOLUTE 0 K/uL; PLATELET COUNT,PLT 250 K/uL (150-400); RED BLOOD CELL COUNT 4.99 M/uL (4.30-5.90); WHITE BLOOD CELL COUNT,WBC 7.81 K/uL (4.0-11.0)
[2023-01-25] MEDS ORDERED: Sodium Chloride 0.9% 2.5 ML Syringe FLUSH PRN (01:14)
[2023-01-25] MEDS ORDERED: Sodium Chloride 0.9% 10 ML Syringe FLUSH PRN (01:14)
[2023-01-25] MEDS ORDERED: diphenhydrAMINE 50 MG/ML SDV IVPUSH ONE (01:29)
[2023-01-25] MEDS ORDERED: Prochlorperazine 10 MG/2 ML SDV IVPUSH ONE (01:29)
[2023-01-25] MEDS ORDERED: Ketorolac 30 MG/ML SDV IVPUSH ONE (01:32)
[2023-01-25] MEDS ORDERED: Sodium Chloride 0.9% 1,000 ML IV ONE (01:37)
[2023-01-25 01:47] LABS: A/G RATIO 1.1 (0.9-1.6); ALANINE AMINOTRANSFERASE,ALT 40 IU/L (14-63); ALBUMIN 4.3 g/dL (3.4-5.0); ALKALINE PHOSPHATASE 81 U/L (46-116); ASPARTATE AMNIOTRANSFERASE,AST 23 IU/L (15-37); BILIRUBIN TOTAL 0.5 mg/dL (0.2-1.0); BLOOD UREA NITROGEN,BUN 11 mg/dL (7.0-18.0); CALCIUM 9.8 mg/dL (8.5-10.1); CARBON DIOXIDE,CO2 21.4 mmol/L (21.0-32.0); CHLORIDE,CL 100 mmol/L (98-107); CREATININE 0.9 mg/dL (0.6-1.0); GLUCOSE RANDOM 170 mg/dL (74-106); LIPASE 21 U/L (16-77); POTASSIUM,K 3.4 mmol/L (3.5-5.1); PROTEIN TOTAL,TP 8.1 g/dL (6.4-8.2); SODIUM,NA 137 mmol/L (136-145)
[2023-01-25 01:54] LABS: ESTIMATED GFR 84 mL/min (>60)
[2023-01-25 01:56] LABS: CORONAVIRUS COVID-19 NAA POSITIVE (NEGATIVE); INFLUENZA A NAA NEGATIVE (NEGATIVE); INFLUENZA B NAA NEGATIVE (NEGATIVE)
[2023-01-25] MEDS ORDERED: Iopamidol 755 MG/ML 500 ML Multipack Bottle IVPUSH ONE (02:03)
[2023-01-25 03:54] VITALS: BP 130/82; PULSE 73
== END 2023-01-25 03:30 | disposition home or self-care (01) ==
LOC: MW.ED 00:44
DX: U07.1 COVID-19 (principal); E86.0 Dehydration; R11.2 Nausea with vomiting, unspecified; R19.7 Diarrhea, unspecified; E66.9 Obesity, unspecified; Z68.30 Body mass index [BMI] 30.0-30.9, adult; Z20.822 Contact with and (suspected) exposure to COVID-19
CPT/HCPCS: 0240U; 36415; 74177; 80053; 83690; 84703; 85025; 96361; 96374; 96375; 99284; J0780; J1200; J1885; J2405; J3490; J7030; Q9967

== ENCOUNTER 2023-01-26 13:35 | Emergency (ER) | payer SELFPAY ==
[2023-01-26] MEDS ORDERED: Sodium Chloride 0.9% 10 ML Syringe FLUSH PRN (14:34)
[2023-01-26] MEDS ORDERED: Sodium Chloride 0.9% 2.5 ML Syringe FLUSH PRN (14:34)
[2023-01-26] MEDS ORDERED: Sodium Chloride 0.9% 1,000 ML IV ONE (14:45)
[2023-01-26] MEDS ORDERED: Metoclopramide 10 MG/2 ML SDV IVPUSH ONE (15:22)
[2023-01-26] MEDS ORDERED: Ketorolac 30 MG/ML SDV IVPUSH ONE (16:27)
[2023-01-26 17:14] VITALS: BP 132/79; PULSE 71
== END 2023-01-26 17:13 | disposition home or self-care (01) ==
LOC: MW.ED 13:35
DX: U07.1 COVID-19 (principal); R10.84 Generalized abdominal pain; Z86.16 Personal history of COVID-19; Z98.890 Other specified postprocedural states
CPT/HCPCS: 36415; 71045; 74018; 83605; 96361; 96374; 96375; 99284; J1885; J2765; J3490; J7030